=== PATIENT | male | born 1950 | race Caucasian/White ===

== ENCOUNTER → 2017-08-08 | Day surgery (SDC) | payer BC, OTHER ==
[2017-07-29 13:56] VITALS: BMI 28.0
[~2017-08-08] VITALS: Ht 170.2 cm; Wt 81.8 kg
[~2017-08-08] MED LIST: ALLO300T2 PO; AMLO5TAB3 PO; ATOR-24 PO; CALC-393 PO; CINN1CAP2 PO; INSDGI SC; LISI20TA3 PO; NVLG SC; POTA10CA28 PO; PROPOFOL IV EMULSION 10 MG/ML 20 ML VIAL IV ONE; SODIUM CHLORIDE 0.9% 500ML 500 ML IV ONE
[2017-08-08 08:17] VITALS: Ht 170.2 cm; Wt 81.8 kg
[2017-08-08 08:26] VITALS: TEMP 36.8
--- NOTE | 2017-08-08 08:31 | Endo History and Physical ---
History & Physical Date of Service: Aug 08, 2017. Chief Complaint: SCREENING FOR COLONOSCOPY Referring Physician: AT [facility], DOES NOT KNOW NAME. History of Present Illness 67 yo CM who presents for screening colonoscopy. Past Surgical History Hx Cardiac Surgery: No Hx Internal Defibrillator: No Hx Pacemaker: No Hx Abdominal Surgery: No Hx of Implantable Prosthesis: No Hx Post-Op Nausea and Vomiting: No Hx Cancer Surgery: No Hx Thoracic Surgery: No Hx Orthopedic: No Hx Urinary Tract Surgery: Yes (URETEROSCOPY AND KIDNEY STONE) Family History None Social History Smoking Status: Current Some Day Smoker Hx Substance Use: No Hx Alcohol Use: Yes (RARELY) Allergies Coded Allergies: No Known Allergies (Verified , 07/29/17) Current Medications Reported Home Medications Medications Dose Route/Sig Max Daily Dose Days Date Category Prinivil (Lisinopril) 20 Mg Tab 20 Mg PO DAILY 07/29/17 Reported Lipitor (Atorvastatin Calcium) 40 Mg Tab 20 Mg PO DAILY 07/29/17 Reported Norvasc (Amlodipine Besylate) 5 Mg Tab 5 Mg PO HS 07/29/17 Reported Zyloprim (Allopurinol) 300 Mg Tab 300 Mg PO DAILY 07/29/17 Reported Micro-K Ext Rel (Potassium Chloride) 10 Meq Capcr 10 Meq PO BID 07/29/17 Reported Calcium (Calcium Carbonate) 600 Mg Tab 1 Tab PO BID 07/29/17 Reported Cinnamon 500 Mg Cap 1 Cap PO BID 07/29/17 Reported Novolog (Insulin Aspart) 100 Units/Ml Inj 20 Units SC BID 07/29/17 Reported Lantus (Insulin Glargine) 100 Unit/Ml Inj 30 SC BID 07/29/17 Reported Vital Signs Weight (Kilograms): 81.82 Height (Feet): 5 Height (Inches): 7 Date Time Temp Pulse Resp B/P (MAP) Pulse Ox O2 Delivery O2 Flow Rate FiO2 08/08/17 08:26 36.8 104 20 151/71 (97) 20 Room Air Physical Exam General Appearance: WD/WN, no apparent distress Respiratory/Chest: Auscultation: breath sounds normal Cardiovascular: Heart Auscultation: RRR Abdomen: Bowel Sounds: normal Inspection & Palpation: soft, non-distended, no tenderness, guarding & rebound Assessment and Plan Assessment: 67 yo CM who presents for screening colonoscopy. Plan: Proceed with colonoscopy.
--- NOTE | 2017-08-08 09:08 | GI REPORT ---
Procedure Date: 08/08/2017 8:38 AM Procedure: Colonoscopy Indications: Screening for colorectal malignant neoplasm Medicines: Monitored Anesthesia Care Complications: No immediate complications. Estimated Blood Loss: Estimated blood loss: none. Procedure: Pre-Anesthesia Assessment: - Prior to the procedure, a History and Physical was performed, and patient medications and allergies were reviewed. The patient's tolerance of previous anesthesia was also reviewed. The risks and benefits of the procedure and the sedation options and risks were discussed with the patient. All questions were answered, and informed consent was obtained. Prior Anticoagulants: The patient has taken no previous anticoagulant or antiplatelet agents. ASA Grade Assessment: II - A patient with mild systemic disease. After reviewing the risks and benefits, the patient was deemed in satisfactory condition to undergo the procedure. After I obtained informed consent, the scope was passed under direct vision. Throughout the procedure, the patient's blood pressure, pulse, and oxygen saturations were monitored continuously. The Scope was introduced through the anus and advanced to the terminal ileum. The colonoscopy was performed without difficulty. The patient tolerated the procedure well. The quality of the bowel preparation was good. The terminal ileum, ileocecal valve, appendiceal orifice, and rectum were photographed. Findings: The perianal and digital rectal examinations were normal. A 4 mm polyp was found in the cecum. The polyp was sessile. The polyp was removed with a cold snare. Resection was complete, but the polyp tissue was not retrieved. Multiple small-mouthed diverticula were found in the sigmoid colon. Non-bleeding internal hemorrhoids were found during retroflexion. The hemorrhoids were small. Impression: - One 4 mm polyp in the cecum, removed with a cold snare. Complete resection. Polyp tissue not retrieved. - Diverticulosis in the sigmoid colon. - Non-bleeding internal hemorrhoids. Recommendation: - Resume previous diet. - Continue present medications. - Repeat colonoscopy in 5 years for surveillance. - Return to primary care physician as previously scheduled. Gabe Bermudez, DO 08/08/2017 9:07:42 AM This report has been signed electronically. Note Initiated On: 08/08/2017 8:38 AM I attest to the content of the Intraoperative Record and orders documented therein, exceptions below
--- NOTE | 2017-08-08 09:27 | Anesthesiology Progress Note ---
Anesthesia Post Op Note Date & Time Aug 08, 2017 at 09:27 Vital Signs Pain Intensity: 0 Vital Signs Past 12 Hours Date Time Temp Pulse Resp B/P (MAP) Pulse Ox O2 Delivery O2 Flow Rate FiO2 08/08/17 09:15 93 16 143/61 (88) 100 Room Air 08/08/17 09:00 89 16 115/63 (80) 100 Room Air 08/08/17 08:26 36.8 104 20 151/71 (97) 20 Room Air Notes Mental Status: alert / awake / arousable, participated in evaluation Pt Amnestic to Procedure: Yes Nausea / Vomiting: adequately controlled Pain: adequately controlled Airway Patency, RR, SpO2: stable & adequate BP & HR: stable & adequate Hydration State: stable & adequate Anesthetic Complications: no major complications apparent
[2017-08-08 09:30] VITALS: BP 144/60; PULSE 90; O2SAT 100
--- NOTE | 2017-08-08 10:17 | Discharge Instructions ---
Endoscopy Patient Instructions Date / Procedure(s) Performed Aug 08, 2017. Colonoscopy Allergy Information Coded Allergies: No Known Allergies (Verified , 07/29/17) Discharge Date / Findings Aug 08, 2017. Colon polyps Diverticulosis Internal hemorrhoids Medication Instructions Stopped Medication(s): TOOK HALF DOSES OF LANTUS AND NOVALOG 08/07/17 OK to resume all medications today as prescribed Reported Home Medications Medications Dose Route/Sig Max Daily Dose Days Date Category Prinivil (Lisinopril) 20 Mg Tab 20 Mg PO DAILY 07/29/17 Reported Lipitor (Atorvastatin Calcium) 40 Mg Tab 20 Mg PO DAILY 07/29/17 Reported Norvasc (Amlodipine Besylate) 5 Mg Tab 5 Mg PO HS 07/29/17 Reported Zyloprim (Allopurinol) 300 Mg Tab 300 Mg PO DAILY 07/29/17 Reported Micro-K Ext Rel (Potassium Chloride) 10 Meq Capcr 10 Meq PO BID 07/29/17 Reported Calcium (Calcium Carbonate) 600 Mg Tab 1 Tab PO BID 07/29/17 Reported Cinnamon 500 Mg Cap 1 Cap PO BID 07/29/17 Reported Novolog (Insulin Aspart) 100 Units/Ml Inj 20 Units SC BID 07/29/17 Reported Lantus (Insulin Glargine) 100 Unit/Ml Inj 30 SC BID 07/29/17 Reported Provider Instructions Activity Restrictions - No exercising or heavy lifting for 24 hours. - Do not drink alcohol the day of the procedure. - Do not drive a car or operate machinery until the day after the procedure. - Do not make any important decisions or sign important papers in 24 hours after the procedure. Following Day: - Return to full activity which may include returning to work/school. Diet Start your diet with liquids and light foods (jello, soup, juice, toast). Then eat your usual diet if not nauseated. Treatment For Common After Affects For mild abdominal pain, bloating, or excessive gas: - Rest - Eat lightly - Lie on right side Follow-Up Information Follow-up with DR AT [facility], DOES NOT KNOW NAME. as scheduled Anesthesia Information What You Should Know You have had a procedure that required some medicine to reduce anxiety and discomfort. This treatment is called moderate sedation. After receiving the treatment, you may be sleepy, but you will be able to breathe on your own. The effects of the treatment may last for several hours. Follow these instructions along with Activity/Diet recommendations noted above: * Do NOT do anything where dizziness or clumsiness would be dangerous. * Rest quietly at home today, then you can be up and about tomorrow. * Have a responsible person stay with you the rest of today. * You may have had an I.V. today. If so, you may take the dressing off later today. Recommendations Call your doctor if: * Trouble breathing * Continuous vomiting for more than 24 hours * Temperature above 101 degrees * Severe abdominal pain or bloating * Pain not relieved by pain medicine ordered * There is increased drainage or redness from any incision * A large amount of rectal bleeding greater than 2-3 tablespoons. (If you had a polyp/s removed or have hemorrhoids, a small amount of blood - from the rectum is to be expected.) * You have any unanswered questions or concerns. IN THE EVENT OF A SERIOUS EMERGENCY, GO TO THE NEAREST EMERGENCY ROOM Your discharge instructions were prepared by provider Gabe Bermudez. Patient Instructions Signature Page Raghav Forte Patient (or Guardian) Signature/Date: I have read and understand the instructions given to me by my caregivers. Caregiver/RN/Doctor Signature/Date: The above-named patient and/or guardian has received patient instructions on this date. + Original Patient Signature Page (only) stays with chart. Please make copy for patient.
== END | disposition home or self-care (01) ==
LOC: C.GI 07:42
PROVIDERS: ATTEND Internal Medicine
DX: Z12.11 Encounter for screening for malignant neoplasm of colon (principal); D12.0 Benign neoplasm of cecum; K57.30 Diverticulosis of large intestine without perforation or abscess without bleeding; K64.8 Other hemorrhoids; F17.200 Nicotine dependence, unspecified, uncomplicated; Z79.4 Long term (current) use of insulin; Z79.899 Other long term (current) drug therapy